=== PATIENT | male | born 2000 ===

== ENCOUNTER 2023-01-19 15:35 | Emergency (ER) | payer OTHER ==
[~2023-01-19] VITALS: Ht 170.2 cm; Wt 63.0 kg
[2023-01-19 15:52] VITALS: O2SAT 98
[2023-01-19] MEDS ORDERED: CEPH500T MT (16:30)
[2023-01-19 16:48] VITALS: BP 112/68; PULSE 88; RESP 18; TEMP 98.7
== END 2023-01-19 19:50 | disposition home or self-care (01) ==
LOC: ER 15:35
DX: L03.90 Cellulitis, unspecified (principal)
CPT/HCPCS: 99283